=== PATIENT | female | born 1930 | race Caucasian/White ===

== ENCOUNTER 2019-07-02 14:34 | Inpatient (IN) | payer MEDICARE, OTHER ==
[2019-07-02] MEDS ORDERED: ONDANSETRON 4 MG/2 ML VIAL IVP PRN (17:20)
[2019-07-02] MEDS ORDERED: HYDROcodone/APAP 5-325MG 1 EACH TAB PO PRN (17:20)
[2019-07-02] MEDS: MORPHINE SULFATE 4 MG/ML SYRINGE IVP PRN ×2 (18:13→22:04)
[2019-07-02] MEDS: SODIUM CHLORIDE 0.9% 1,000 ML IV SCH (18:15)
[2019-07-02] MEDS ORDERED: MAGNESIUM HYDROXIDE 2,400 MG/10 ML CUP PO PRN (18:19)
[2019-07-02] MEDS ORDERED: BISACODYL 5 MG TABLET.DR PO PRN (18:19)
--- NOTE | 2019-07-02 19:57 | XR ---
EXAMINATION TYPE: XR Hip Complete LT DATE OF EXAM: 07/02/2019 COMPARISON: NONE HISTORY: Hip pain TECHNIQUE: 3 views FINDINGS: There is severely impacted displaced intertrochanteric fracture left femur with comminution. There is no dislocation. Impression Comminuted intertrochanteric displaced fracture left femur.
[2019-07-03] MEDS: LEVOTHYROXINE 75 MCG TAB PO SCH (06:07)
[2019-07-03] MEDS: MORPHINE SULFATE 4 MG/ML SYRINGE IVP PRN (08:14)
[2019-07-03] MEDS: METOPROLOL SUCCINATE (ER) 25 MG TAB.ER.24H PO SCH (08:15)
[2019-07-03] MEDS: amLODIPine 5 MG TAB PO SCH (08:15)
[2019-07-03] MEDS: FLUoxetine HCL 20 MG CAP PO SCH (08:15)
[2019-07-03] MEDS ORDERED: LISINOPRIL 20 MG TAB PO SCH (09:00)
--- NOTE | 2019-07-03 09:30 | P.CNOR ---
History of Present Illness - [facility] Consult date: 07/03/19 Consult reason: fracture History of present illness: Patient is an 88-year-old female who presented to [facility] yesterday afternoon after being transferred from [facility]. Patient lives at [facility], She had a fall while making her bed which resulted in a left intertrochanteric femur fracture. This was confirmed by x- rays at the initial hospital, she was transferred to our hospital for orthopedic care. She was admitted under internal medicine, I was contacted by the nursing staff last night regarding the patient. Patient was evaluated this morning at bedside, she is resting comfortably. She notes most discomfort in her left leg. She has no other orthopedic complaints. She's never had surgery with regards to left lower extremity. She does take Plavix, last confirmed dose was on 07/01/2019. I discussed with the patient that I would contact her daughter with regards to her current condition and treatment. Review of Systems Constitutional: Reports as per HPI Past Medical History Past Medical History: Heart Failure, COPD, GERD/Reflux, Hypertension, Osteoarthritis (OA), Skin Disorder, Thyroid Disorder History of Any Multi-Drug Resistant Organisms: None Reported Past Surgical History: No Surgical Hx Reported Past Anesthesia/Blood Transfusion Reactions: No Reported Reaction Past Psychological History: Anxiety, Depression Smoking Status: Former smoker Past Alcohol Use History: None Reported Past Drug Use History: None Reported - Past Family History Mother Family Medical History: No Reported History Medications and Allergies Home Medications Medication Instructions Recorded Confirmed Type Bisacodyl 10 mg PO Q48H PRN 07/02/19 07/02/19 History Clopidogrel Bisulfate [Plavix] 75 mg PO DAILY@0900 07/02/19 07/02/19 History FLUoxetine HCL [PROzac] 20 mg PO DAILY@0900 07/02/19 07/02/19 History HYDROcodone/APAP 5-325MG [[place] 1 tab PO Q6H PRN 07/02/19 07/02/19 History 5-325] HYDROcodone/APAP 5-325MG [[place] 1 tab PO TID@0900,1300,2100 07/02/19 07/02/19 History 5-325] House Supplement 120 ml PO DAILY@1400 07/02/19 07/02/19 History Levothyroxine Sodium [Synthroid] 75 mcg PO DAILY@0600 07/02/19 07/02/19 History Lisinopril [Zestril] 20 mg PO DAILY@0900 07/02/19 07/02/19 History Magnesium Hydroxide [Milk of 7,200 mg PO DAILY PRN 07/02/19 07/02/19 History Magnesia Concentrate] Metoprolol Succinate [Toprol XL] 25 mg PO DAILY@0900 07/02/19 07/02/19 History amLODIPine [Norvasc] 5 mg PO DAILY@0900 07/02/19 07/02/19 History clonazePAM [KlonoPIN] 0.5 mg PO BID@0900,2100 07/02/19 07/02/19 History Allergies Allergy/AdvReac Type Severity Reaction Status Date / Time No Known Allergies Allergy Verified 07/02/19 17:54 Physical Examination Left lower extremity: No significant ecchymosis or soft tissue swelling Obvious shortening and external rotation of the extremity when compared to the contralateral side There is an abrasion distal to the knee, this is covered with bandage No tenderness with palpation surrounding the knee, foot or ankle Logroll maneuver and straight leg raises unattainable Calf is soft, no tenderness with palpation Distal neurovascular exam is intact Results - Diagnostic results Hip x-ray: report reviewed, image reviewed (Displaced and comminuted left intertrochanteric femur fracture) Assessment and Plan Assessment: Displaced and comminuted left intertrochanteric femur fracture Status post fall from standing Other medical comorbidities Plan: I discussed the case with Dr. Celis my attending physician, plan is for surgical intervention on 07/03/2019. We will proceed with an intramedullary nail of left intertrochanteric femur fracture. I discussed the risk and benefits of the procedure with the patient at bedside and also the patient's daughter over the phone, they are in good understanding a nd would like to proceed. Obtain consent Pain control GI and DVT prophylaxis, will resume Plavix after surgery Physical therapy evaluation after surgery Medical recommendations Further recommendations to follow after surgery Time with Patient: Less than 30
[2019-07-03] MEDS ORDERED: KETOROLAC 30 MG/ML 1 ML VIAL IVP PRN (09:52)
[2019-07-03 10:27] VITALS: BMI 18.7
[2019-07-03] MEDS ORDERED: SODIUM CHLORIDE 0.9% 1,000 ML IV ONE (10:59)
[2019-07-03] MEDS ORDERED: ePHEDrine SULFATE/0.9% NACL/PF 50 MG/5 ML SYRINGE IV ONE (13:42)
[2019-07-03] MEDS ORDERED: SUCCINYLCHOLINE CHLORIDE 100 MG/5 ML SYR IV ONE (13:42)
[2019-07-03] MEDS ORDERED: PROPOFOL 10 MG/ML 20 ML VIAL IV ONE (13:42)
[2019-07-03] MEDS ORDERED: MIDAZOLAM 2 MG/2 ML VIAL ONE (13:42)
[2019-07-03] MEDS ORDERED: fentaNYL (PF) 50 MCG/ML 2 ML AMP ONE (13:42)
[2019-07-03] MEDS ORDERED: LIDOCAINE 1% INJ 10MG/ML (20 ML MDV) ONE (13:42)
[2019-07-03] MEDS ORDERED: LACTATED RINGERS 1,000 ML IV ONE (14:41)
[2019-07-03] MEDS ORDERED: HYDROmorphone 0.5 MG/0.5 ML SYRINGE IVP PRN (14:55)
[2019-07-03] MEDS ORDERED: NALOXONE 0.4 MG/ML 1 ML VIAL IV PRN (14:55)
[2019-07-03] MEDS ORDERED: ONDANSETRON 4 MG/2 ML VIAL IVP PRN (14:55)
--- NOTE | 2019-07-03 14:58 | FL ---
Fluoroscopy INDICATION: Pain FINDINGS: Fluoroscopy time: 46 seconds. Images obtained: 3. IMPRESSIONS: 1. Documentation of fluoroscopy.
--- NOTE | 2019-07-03 14:58 | XR ---
Fluoroscopy INDICATION: Pain FINDINGS: Fluoroscopy time: 0.6 seconds. Images obtained: 3. IMPRESSIONS: 1. Documentation of fluoroscopy.
--- NOTE | 2019-07-03 15:04 | P.OP ---
Date of Procedure: 07/03/19 Preoperative Diagnosis: Comminuted displaced left hip intertrochanteric fracture Postoperative Diagnosis: Comminuted displaced left hip intertrochanteric fracture Procedure(s) Performed: Trochanteric nailing left hip Implants: Synthes 10 mm/130 titanium cannulated trochanteric nail1 cm millimeters in length with a 100 mm fenestrated helical blade and a 34 mm distal locking screw Anesthesia: SOLIS Surgeon: Will Celis Windows Software Developer #1: Sid Ventura Estimated Blood Loss (ml): 50 Pathology: none sent Condition: stable Disposition: PACU Indications for Procedure: 88-year-old patient seen with a comminuted/displaced left hip intertrochanteric fracture. We recommended trochanteric nailing. The patient was agreeable and consent was obtained. Operative Findings: See description of procedure Description of Procedure: The patient was taken to the operative suite. The patient underwent a general anesthetic by the department of anesthesia. The patient was transferred to the fracture table. The left leg was placed in standard washer traction with slight internal rotation and adduction. The right lower stress place a well-padded well-leg centeno. C-arm brought in and confirmed adequate alignment of this comminuted fracture. C-arm was now pulled back. The patient did receive preoperative IV antibiotics. Left hip was now prepped and draped in the normal sterile fashion. I now brought the C-arm back into the operative field. A 6 cm incision was now made along the proximal trochanteric area. I now dissect down to the IT band. I incised the IT band. I now introduced a guidewire into the intramedullary canal. I then used our entry reamer. I then chose the appropriate trochanteric nail. That was introduced over the guidewire down into the intramedullary canal. It was tapped down appropriately appropriate position was noted. I now used the outrigger and made a separate incision followed by inserting a guidewire into the head neck complex. I confirmed adequate positioning under AP and lateral intraoperative imaging. I now reamed over the guidewire. I now introduced our fenestrated helical blade 100 mm. I now locked it into position. I now removed the cannula for that. I'll introduced cannula for a distal locking screw. An incision was made. That cannula was introduced until it hit the bone. I now drilled the holes for distal locking screw. I now placed a 34 mm 5.0 mm screw with good bite and purchase noted intraoperatively was removed. We noted adequate alignment of both the hardware and the fracture. The wounds were irrigated with saline solution. The IT band proximal was repaired #1 Vicryl. The subcu soft tissues were all repaired with 2-0 Vicryl. All incisions were repaired with skin joselito. Sterile dressings were applied. The patient was awakened. She was transferred to a bed and recovery stable condition. Sean JUAREZ assisted with this procedure.
--- NOTE | 2019-07-03 15:24 | P.HPIM ---
History of Present Illness H&P Date: 07/03/19 Chief Complaint: Left intertrochanteric femur fracture status post fall This is an 88-year-old female who was recently transferred from [facility] status post mechanical fall and underwent x-rays confirming left intertrochanteric femur fracture requiring surgical intervention. Orthopedic surgery is following. Patient is a resident at [facility] and reported a fall while making her bed yesterday. Patient does have a history of heart failure, COPD, gastroesophageal reflux disease, osteoarthritis, thyroid disorder, and history of anxiety and depression and home medications will be resumed. Will hold off on antihypertensives and assess for postoperative hypotension. Patient does have a history of taking Plavix with the last dose confirmed on 07/01/2019. Patient is scheduled to undergo orthopedic repair of this left intertrochanteric femur fracture today. Left hip x-ray reviewed showing severely impacted displaced intertrochanteric fracture of the left femur with comminution Review of Systems REVIEW OF SYSTEMS: CONSTITUTIONAL: No fever, no malaise, no fatigue. HEENT: No recent visual problems or hearing problems. Denies sore throat CARDIOVASCULAR: No chest pain, orthopnea, PND, no palpitations, no syncope. PULMONARY: no cough, no hemoptysis. GASTROINTESTINAL: No diarrhea, no nausea, no vomiting, no abdominal pain. NEUROLOGICAL: No headaches, no weakness, no numbness. HEMATOLOGICAL: Denies any bleeding or petechiae. GENITOURINARY: Denies any burning with micturition, dysuria, frequency, or urgency. MUSCULOSKELETAL/RHEUMATOLOGICAL: Reports left hip and leg pain ENDOCRINE: Denies any polyuria or polydipsia. SKIN: Denies rashes or lesions The rest of the 14-point review of systems is negative. Past Medical History Past Medical History: Heart Failure, COPD, GERD/Reflux, Hypertension, Osteoarthritis (OA), Skin Disorder, Thyroid Disorder History of Any Multi-Drug Resistant Organisms: None Reported Past Surgical History: No Surgical Hx Reported Past Anesthesia/Blood Transfusion Reactions: No Reported Reaction Past Psychological History: Anxiety, Depression Smoking Status: Former smoker Past Alcohol Use History: None Reported Past Drug Use History: None Reported - Past Family History Mother Family Medical History: No Reported History Medications and Allergies Home Medications Medication Instructions Recorded Confirmed Type Bisacodyl 10 mg PO Q48H PRN 07/02/19 07/02/19 History Clopidogrel Bisulfate [Plavix] 75 mg PO DAILY@0900 07/02/19 07/02/19 History FLUoxetine HCL [PROzac] 20 mg PO DAILY@0900 07/02/19 07/02/19 History HYDROcodone/APAP 5-325MG [[place] 1 tab PO Q6H PRN 07/02/19 07/02/19 History 5-325] HYDROcodone/APAP 5-325MG [[place] 1 tab PO TID@0900,1300,2100 07/02/19 07/02/19 History 5-325] House Supplement 120 ml PO DAILY@1400 07/02/19 07/02/19 History Levothyroxine Sodium [Synthroid] 75 mcg PO DAILY@0600 07/02/19 07/02/19 History Lisinopril [Zestril] 20 mg PO DAILY@0907/02/19 07/02/19 History Magnesium Hydroxide [Milk of 7,200 mg PO DAILY PRN 07/02/19 07/02/19 History Magnesia Concentrate] Metoprolol Succinate [Toprol XL] 25 mg PO DAILY@0900 07/02/19 07/02/19 History amLODIPine [Norvasc] 5 mg PO DAILY@0900 07/02/19 07/02/19 History clonazePAM [KlonoPIN] 0.5 mg PO BID@0900,2100 07/02/19 07/02/19 History Allergies Allergy/AdvReac Type Severity Reaction Status Date / Time No Known Allergies Allergy Verified 07/02/19 17:54 Physical Exam Vitals: Vital Signs Temp Pulse Resp BP Pulse Ox 07/03/19 11:00 97.6 F 68 16 170/64 96 07/03/19 04:50 98.1 F 56 L 16 146/74 93 L 07/02/19 23:00 99.5 F 57 L 16 160/75 97 07/02/19 16:40 97.8 F 63 17 153/69 95 Intake and Output 07/02/19 07/03/19 07/03/19 22:59 06:59 14:59 Intake Total 310 160 950 Output Total 100 450 Balance 310 60 500 Intake: IV 950 Intake, IV Titration 70 160 Amount Sodium Chloride 0.9% 1, 70 160 000 ml @ 20 mls/hr IV . Q24H [facility] Rx#:[id number] Oral 240 Output: Urine 100 400 Uretheral (Marie) 100 Estimated Blood Loss 50 Other: Voiding Method Indwelling Catheter Indwelling Catheter # Voids 1 Weight 49.442 kg 49.442 kg Gen: This is a 88-year-old female awake, alert and oriented 3, well-developed, well-nourished HEENT: Head is atraumatic, normocephalic. Pupils equal, round. Sclerae is anicteric. NECK: Supple. No JVD. No lymphadenopathy. No thyromegaly. LUNGS: Clear to auscultation. No wheezes or rhonchi. No intercostal retractions. HEART: Regular rate and rhythm. No murmur. ABDOMEN: Soft. Bowel sounds are present. No masses. No tenderness. EXTREMITIES: No pedal edema. No calf tenderness. Left hip and femur tenderness. NEUROLOGICAL: Patient is awake, alert and oriented x3. Cranial nerves 2 through 12 are grossly intact. Thrombosis Risk Factor Assmnt - Choose All That Apply Each Factor Represents 1 point: Abnormal pulmonary function (COPD), Medical pt on bed rest Each Risk Factor Represents 2 Points: Patient confined to bed Each Risk Factor Represents 3 Points: Age 75 years or older Other congenital or acquired thrombophilia - If yes, enter type in comment: No Each Risk Factor Represents 5 Points: Hip, pelvis, or leg fracture (< 1 month) Thrombosis Risk Factor Assessment Total Risk Factor Score: 12 Thrombosis Risk Factor Assessment Level: High Risk Assessment and Plan Assessment: -Status post fall, mechanical, left intertrochanteric femur fracture -History of COPD, not in any acute exacerbation -Hypertension: Will hold antihypertensive medication to assess and monitor for postoperative hypotension -History of thyroid disorder -History of heart failure -History of depression: Will continue with Prozac
[2019-07-03] MEDS: traMADol 50 MG TAB PO SCH ×2 (18:06→22:27)
[2019-07-03] MEDS: SODIUM CHLORIDE 0.9% 1,000 ML IV SCH (19:20)
[2019-07-03] MEDS: SENNOSIDES-DOCUSATE SODIUM 1 EACH TAB PO SCH (21:07)
[2019-07-03] MEDS: FAMOTIDINE 20 MG TAB PO SCH (21:07)
[2019-07-04] MEDS: LEVOTHYROXINE 75 MCG TAB PO SCH (05:27)
[2019-07-04 06:51] LABS: HCT 22.8 % (34.0-46.0); HGB 7.2 gm/dL (11.4-16.0); MCHC 31.4 g/dL (31.0-37.0); MCV 95.7 fL (80.0-100.0); Mean Platelet Volume 7.5; Platelet Count 210 k/uL (150-450); RBC 2.39 m/uL (3.80-5.40); RDW 13.3 % (11.5-15.5); WBC 9.3 k/uL (3.8-10.6)
[2019-07-04 07:00] LABS: Calcium 8.4 mg/dL (8.4-10.2); Potassium 4.2 mmol/L (3.5-5.1)
[2019-07-04] MEDS: METOPROLOL SUCCINATE (ER) 25 MG TAB.ER.24H PO SCH (08:13)
[2019-07-04] MEDS: FLUoxetine HCL 20 MG CAP PO SCH (08:13)
[2019-07-04] MEDS: CLOPIDOGREL 75 MG TAB PO SCH (08:13)
[2019-07-04] MEDS: traMADol 50 MG TAB PO SCH ×4 (08:13→21:05)
[2019-07-04] MEDS: amLODIPine 5 MG TAB PO SCH (08:14)
[2019-07-04] MEDS: FAMOTIDINE 20 MG TAB PO SCH (08:14)
--- NOTE | 2019-07-04 10:43 | P.PN ---
Subjective Progress Note Date: 07/04/19 Principal diagnosis: status post IM nail left intertrochanteric femur fracture Patient was examined today visit, she is resting comfortably in her hospital chair. She notes the pain is controlled at this time. She denies any chest pain, shortness of breath, fever or chills Objective - Vital Signs Vital signs: Vital Signs Temp 97.9 F 07/04/19 05:00 Pulse 75 07/04/19 08:30 Resp 18 07/04/19 08:30 BP 136/77 07/04/19 05:00 Pulse Ox 98 07/04/19 05:00 Intake & Output 07/03/19 07/04/19 07/04/19 18:59 06:59 18:59 Intake Total 1000 440 Output Total 550 325 Balance 450 115 Weight 49.442 kg Intake: IV 1000 Intake, IV Titration 240 Amount Sodium Chloride 0.9% 1, 240 000 ml @ 20 mls/hr IV . Q24H [facility] Rx#:[id number] Oral 200 Output: Urine 500 325 Estimated Blood Loss 50 Other: Voiding Method Indwelling Catheter Indwelling Catheter Indwelling Catheter - Exam Left lower extremity: Postoperative bandages are in good position and condition. No active drainage visualized. Minimal soft tissue swelling present in the leg. Calf is soft, no tenderness with palpation. Plantar flexion, dorsiflexion, EHL, FHL are intact. Sensory exam light touch is intact throughout the extremity. - Labs CBC & Chem 7: 07/04/19 05:34 07/04/19 05:34 Labs: Abnormal Lab Results - Last 24 Hours (Table) 07/04/19 07/04/19 Range/Units 05:34 05:34 RBC 2.39 L (3.80-5.40) m/uL Hgb 7.2 L (11.4-16.0) gm/dL Hct 22.8 L (34.0-46.0) % Sodium 132 L (137-145) mmol/L BUN 22 H (7-17) mg/dL Assessment and Plan Assessment: Status post IM nail left intertrochanteric femur fracture Acute blood loss anemia, expected surgical outcome Plan: Pain control, continue current medication Toe-touch weight-bearing with walker PT evaluation Will change dressing tomorrow I did order one unit of packed RBCs along with type and screen GI and DVT prophylaxis, patient has resumed Plavix Other medical recommendations We'll continue to follow during inpatient stay Time with Patient: Less than 30
--- NOTE | 2019-07-04 15:14 | P.PN ---
Subjective Progress Note Date: 07/04/19 Principal diagnosis: This is an 88-year-old female who was recently transferred from [facility] status post mechanical fall and underwent x-rays confirming left intertrochanteric femur fracture requiring surgical intervention. Orthopedic surgery is following. Patient is a resident at [facility] and reported a fall while making her bed yesterday. Patient does have a history of heart failure, COPD, gastroesophageal reflux disease, osteoarthritis, thyroid disorder, and history of anxiety and depression and home medications will be resumed. Will hold off on antihypertensives and assess for postoperative hypotension. Patient does have a history of taking Plavix with the last dose confirmed on 07/01/2019. Patient is scheduled to undergo orthopedic repair of this left intertrochanteric femur fracture today. Left hip x-ray reviewed showing severely impacted displaced intertrochanteric fracture of the left femur with comminution 07/04/2019 Patient is seen and evaluated status post left intertrochanteric IM nail placement with orthopedic surgery and is postop day #1. Patient states she is having some discomfort of the left hip and will be working with physical therapy sometime today. Patient states that her pain is being managed. Plavix has been resumed. Surgical dressings of the left hip noted to be dry and intact. Hemoglobin this morning is 7.2 and a unit of PRBCs were ordered. Currently has no reports of chest pain, shortness of breath, or palpitations. Patient is afebrile. No reports of nausea or vomiting and patient is tolerating diet. She denies any bowel movements at this time but is passing some gas. Vital signs within normal limits and will monitor blood pressure closely his current antihypertensive medications are being held. Norvasc was reinitiated. Will repeat a.m. labs. Objective - Vital Signs Vital signs: Vital Signs Temp 97.9 F 07/04/19 05:00 Pulse 75 07/04/19 08:30 Resp 18 07/04/19 08:30 BP 136/77 07/04/19 05:00 Pulse Ox 98 07/04/19 05:00 Intake & Output 07/03/19 07/04/19 07/04/19 18:59 06:59 18:59 Intake Total 1000 440 Output Total 550 325 Balance 450 115 Weight 49.442 kg Intake: IV 1000 Intake, IV Titration 240 Amount Sodium Chloride 0.9% 1, 240 000 ml @ 20 mls/hr IV . Q24H [facility] Rx#:[id number] Oral 200 Output: Urine 500 325 Estimated Blood Loss 50 Other: Voiding Method Indwelling Catheter Indwelling Catheter Indwelling Catheter - Exam Gen: This is a 88-year-old female awake, alert and oriented 3, well-developed, well-nourished HEENT: Head is atraumatic, normocephalic. Pupils equal, round. Sclerae is anicteric. NECK: Supple. No JVD. No lymphadenopathy. No thyromegaly. LUNGS: Clear to auscultation. No wheezes or rhonchi. No intercostal retractions. HEART: Regular rate and rhythm. No murmur. ABDOMEN: Soft. Bowel sounds are present. No masses. No tenderness. EXTREMITIES: No pedal edema. No calf tenderness. Status post left IM nail placement for intertrochanteric femur fracture with surgical dressings noted that are dry and intact. NEUROLOGICAL: Patient is awake, alert and oriented x3. Cranial nerves 2 through 12 are grossly intact. - Labs CBC & Chem 7: 07/04/19 05:34 07/04/19 05:34 Labs: Abnormal Lab Results - Last 24 Hours (Table) 07/04/19 07/04/19 Range/Units 05:34 05:34 RBC 2.39 L (3.80-5.40) m/uL Hgb 7.2 L (11.4-16.0) gm/dL Hct 22.8 L (34.0-46.0) % Sodium 132 L (137-145) mmol/L BUN 22 H (7-17) mg/dL Assessment and Plan Assessment: -Status post fall, mechanical, left intertrochanteric femur fracture -Status post IT nail placement for left intertrochanteric femur fracture -Acute blood loss anemia, secondary to surgery, and expected outcome of surgery. Patient to receive 1 unit of PRBCs. Hemoglobin is 7.2 currently and will repeat a.m. labs. -History of COPD, not in any acute exacerbation -Hypertension: Norvasc resumed, holding lisinopril at this time. -History of thyroid disorder -History of heart failure -History of depression: Will continue with Prozac Plan: Continue current medications, management, and symptomatic treatment. Patient's hemoglobin was found to be 7.2 this morning and is receiving a unit of PRBCs. Will repeat a.m. labs. Norvasc reinitiated. PT/OT following along with orthopedic surgery. Will continue to monitor patient closely. Further rec ommendations to follow based on clinical course. Patient is a resident at [facility] and will likely be returning there once stabilized and discharged.
[2019-07-04] MEDS: SODIUM CHLORIDE 0.9% 1,000 ML IV SCH (20:24)
[2019-07-04] MEDS: SENNOSIDES-DOCUSATE SODIUM 1 EACH TAB PO SCH (21:05)
[2019-07-05 05:30] VITALS: TEMP 97.6
[2019-07-05] MEDS: LEVOTHYROXINE 75 MCG TAB PO SCH (06:07)
[2019-07-05] MEDS: traMADol 50 MG TAB PO SCH ×2 (08:03→14:46)
[2019-07-05] MEDS: amLODIPine 5 MG TAB PO SCH (08:03)
[2019-07-05] MEDS: FLUoxetine HCL 20 MG CAP PO SCH (08:03)
[2019-07-05] MEDS: METOPROLOL SUCCINATE (ER) 25 MG TAB.ER.24H PO SCH (08:05)
[2019-07-05] MEDS: CLOPIDOGREL 75 MG TAB PO SCH (08:05)
[2019-07-05] MEDS ORDERED: FAMOTIDINE 20 MG TAB PO SCH (09:00)
[2019-07-05] MEDS ORDERED: LISINOPRIL 20 MG TAB PO SCH (09:30)
[2019-07-05 09:49] LABS: Basophils % (A) 0 %; Eosinophils # (A) 0.1 k/uL (0-0.7); Eosinophils % (A) 1 %; HCT 27.8 % (34.0-46.0); Lymphocytes % (A) 11 %; MCH 30.5 pg (25.0-35.0); MCHC 33.1 g/dL (31.0-37.0); MCV 92.4 fL (80.0-100.0); Mean Platelet Volume 7.7; Monocytes # (A) 0.5 k/uL (0-1.0); Monocytes % (A) 6 %; Neutrophils # (A) 7.7 k/uL (1.3-7.7); Neutrophils % (A) 81 %; Platelet Count 255 k/uL (150-450); RBC 3.01 m/uL (3.80-5.40); RDW 13.6 % (11.5-15.5); WBC 9.5 k/uL (3.8-10.6)
[2019-07-05 09:51] LABS: HGB 9.2 gm/dL (11.4-16.0)
--- NOTE | 2019-07-05 11:16 | P.PN ---
Subjective Progress Note Date: 07/05/19 Principal diagnosis: status post IM nail left intertrochanteric femur fracture Patient was examined today visit, she is resting comfortably in her hospital chair. She notes the pain is controlled at this time. She denies any chest pain, shortness of breath, fever or chills Objective - Vital Signs Vital signs: Vital Signs Temp 97.6 F 07/05/19 05:00 Pulse 73 07/05/19 09:49 Resp 17 07/05/19 09:49 BP 169/74 07/05/19 09:49 Pulse Ox 95 07/05/19 05:00 Intake & Output 07/04/19 07/05/19 07/05/19 18:59 06:59 18:59 Intake Total 470 640 Output Total 800 500 600 Balance -330 140 -600 Weight 44 kg Intake: Oral 160 640 Blood Product 310 Rc As-1 Unit 310 [id number] Output: Urine 800 500 600 Uretheral (Marie) 500 Other: Voiding Method Indwelling Catheter Indwelling Catheter Indwelling Catheter # Voids 1 2 - Exam Left lower extremity: incision is clean, dry and intact, joselito are in good position and condition. Minimal soft tissue swelling present in the leg. Calf is soft, no tenderness with palpation. Plantar flexion, dorsiflexion, EHL, FHL are intact. Sensory exam light touch is intact throughout the extremity. - Labs CBC & Chem 7: 07/05/19 09:30 07/04/19 05:34 Labs: Abnormal Lab Results - Last 24 Hours (Table) 07/04/19 07/05/19 Range/Units 10:16 09:30 RBC 3.01 L (3.80-5.40) m/uL Hgb 9.2 L D (11.4-16.0) gm/dL Hct 27.8 L (34.0-46.0) % Crossmatch See Detail Assessment and Plan Assessment: Status post IM nail left intertrochanteric femur fracture Acute blood loss anemia, expected surgical outcome Plan: Pain control, continue current medication Toe-touch weight-bearing with walker PT evaluation Hemoglobin is improved since transfusion, plan for discharge on oral iron GI and DVT prophylaxis, patient has resumed Plavix Other medical recommendations Plan for discharge to automotive today Time with Patient: Less than 30
--- NOTE | 2019-07-05 11:25 | P.DS ---
Providers Date of admission: 07/02/19 16:38 Expected date of discharge: 07/05/19 Attending physician: Shae Giles MD Consults: 07/02/19 17:18 Consult Physician Routine Consulting Provider: Will Celis Consult Reason/Comments: left hip fracture Do you want consulting provider notified?: Yes Placement Type Exists?: Yes Primary care physician: Stated None Hospital Course: Date of admission: 07/02/2019 Date of discharge: 07/05/2019 Admission diagnosis: Displaced and comminuted left intertrochanteric femur fracture Discharge diagnosis: Status post intramedullary nail left intertrochanteric femur fracture Attending physician: Dr. Celis Surgical procedures: Intramedullary nail left intertrochanteric femur fracture Brief history: Patient is a 88-year-old female who was a direct admit to [facility] in hospital from [facility]. She had a fall at her residence which resulted in a displaced and comminuted left intertrochanteric femur fracture. She was transferred to this hospital for orthopedic care, she was initially admitted under internal medicine with our team on consult. Patient was scheduled for surgery on 07/03/2019. Hospital course: Details of patient's surgery can be found in operative report. Patient tolerated the procedure well and was subsequently transported to orthopedic floor. Patient's orthopeidc and medical care was provided daily. Patient had daily laboratory tests performed for evaluation of overall blood counts. Patient had daily physical therapy to include strengthening range of motion as well as education with walker ambulation. Patient was treated with Plavix for their postoperative DVT prophylaxis during their inpatient stay. Patient was noted to have a relatively uneventful postoperative course. Patient reported satisfactory pain control with oral pain medications by postoperative day 0. Patient showed satisfactory progress with physical therapy. Patient moved steadily through the program and had no difficulty meeting the goals by postoperative day 2. Given patient's otherwise satisfactory course and having met physical therapy goals, plan is to discharge patient rehab on postoperative day 2. Discharge condition/disposition: Patient will be discharged to rehab in stable condition. Discharge medications: Instructions are given on resumption of patient's normal daily medications per primary care recommendation, in addition patient will be prescribed Benld 5 mg/325 mg, ferrous sulfate 325 mg., Colace 100 mg Discharge instructions: 1. Wound care and infection precautions, keep incision dry and covered while showering, no lotions, creams, moisturizers. No soaking, tubs, pools, hottubs. Do not scrub over the incision. 2. Toe-touch weightbearing with walker 3. Ice and elevate when necessary. Do not exceed 20 minutes per hour with ice pack. 10. Follow up in office at 2 weeks postop with Sean Ventura PA-C 11. Follow up with your primary care doctor 7-10 days after discharge. 12. Contact [facility] with any questions, . Procedures: Intramedullary nail left intertrochanteric femur fracture Patient Condition at Discharge: Fair Plan - Discharge Summary Discharge Rx Participant: No New Discharge Prescriptions: New Docusate [Colace] 100 mg PO DAILY #30 capsule Ferrous Sulfate [Feosol] 325 mg PO BID #60 tab Hydrocodone/Acetaminophen [Benld 5-325] 1 each PO Q8HR PRN #40 tab PRN Reason: Pain No Action House Supplement 120 ml PO DAILY@1400 amLODIPine [Norvasc] 5 mg PO DAILY@0900 Bisacodyl 10 mg PO Q48H PRN PRN Reason: Constipation clonazePAM [KlonoPIN] 0.5 mg PO BID@0900,2100 Clopidogrel Bisulfate [Plavix] 75 mg PO DAILY@0900 FLUoxetine HCL [PROzac] 20 mg PO DAILY@0900 HYDROcodone/APAP 5-325MG [Benld 5-325] 1 tab PO Q6H PRN PRN Reason: Pain HYDROcodone/APAP 5-325MG [Benld 5-325] 1 tab PO TID@0900,1300,2100 Levothyroxine Sodium [Synthroid] 75 mcg PO DAILY@0600 Lisinopril [Zestril] 20 mg PO DAILY@0900 Magnesium Hydroxide [Milk of Magnesia Concentrate] 7,200 mg PO DAILY PRN PRN Reason: Constipation Metoprolol Succinate [Toprol XL] 25 mg PO DAILY@0900 Discharge Medication List Bisacodyl 10 mg PO Q48H PRN 07/02/19 [History] Clopidogrel Bisulfate [Plavix] 75 mg PO DAILY@0900 07/02/19 [History] FLUoxetine HCL [PROzac] 20 mg PO DAILY@0900 07/02/19 [History] House Supplement 120 ml PO DAILY@1400 07/02/19 [History] Levothyroxine Sodium [Synthroid] 75 mcg PO DAILY@0600 07/02/19 [History] Lisinopril [Zestril] 20 mg PO DAILY@0900 07/02/19 [History] Magnesium Hydroxide [Milk of Magnesia Concentrate] 7,200 mg PO DAILY PRN 07/02/19 [History] Metoprolol Succinate [Toprol XL] 25 mg PO DAILY@0900 07/02/19 [History] amLODIPine [Norvasc] 5 mg PO DAILY@0900 07/02/19 [History] clonazePAM [KlonoPIN] 0.5 mg PO BID@0900,2100 07/02/19 [History] Docusate [Colace] 100 mg PO DAILY #30 capsule 07/05/19 [Rx] Ferrous Sulfate [Feosol] 325 mg PO BID #60 tab 07/05/19 [Rx] Hydrocodone/Acetaminophen [Benld 5-325] 1 each PO Q8HR PRN #40 tab 07/05/19 [Rx] Follow up Appointment(s)/Referral(s): Sid Ventura PAC [PHYSICIAN APPLICATION INTEGRATION ENGINEER] - 2 Weeks Activity/Diet/Wound Care/Special Instructions: Orthopedic discharge instructions: 1. Date of surgery was 07/03/2019, okay to remove joselito after 2 weeks, if office visit is scheduled around that time I will take them a myself 2. Keep incisions covered and dry while showering 3. Toe-touch weightbearing with walker at all times 4. Patient has a small skin tear on the left calf, please address with oral immersion dressing, okay to change every 3 days 5. Ferrous sulfate 325 mg twice a day for 2-4 weeks due to acute blood loss anemia 6. Plan for [facility]up at [facility] 2 weeks Discharge Disposition: TRANSFER TO SNF/ECF
[2019-07-05 11:51] VITALS: BP 137/70; PULSE 67; RESP 16
--- NOTE | 2019-07-05 12:11 | P.DS ---
Providers Date of admission: 07/02/19 16:38 Expected date of discharge: 07/05/19 Attending physician: Shae Giles MD Consults: 07/02/19 17:18 Consult Physician Routine Consulting Provider: Will Celis Consult Reason/Comments: left hip fracture Do you want consulting provider notified?: Yes Placement Type Exists?: Yes Primary care physician: Stated None Hospital Course: Final diagnosis -Status post fall, mechanical, left intertrochanteric femur fracture -Status post IT nail placement for left intertrochanteric femur fracture -Acute blood loss anemia, secondary to surgery, and expected outcome of surgery, and proved -History of COPD, not in any acute exacerbation -Hypertension -History of thyroid disorder -History of heart failure -History of depression Discharge disposition Patient is being discharged in a stable condition with guarded prognosis back to [facility] as she is a resident there. Patient will follow-up with orthopedic surgery in the next 2 weeks. Total time taken is 35 minutes. History of present illness This is an 88-year-old female who was recently transferred from [facility] status post mechanical fall and underwent x-rays confirming left intertrochanteric femur fracture requiring surgical intervention. Orthopedic surgery is following. Patient is a resident at [facility] and reported a fall while making her bed yesterday. Patient does have a history of heart failure, COPD, gastroesophageal reflux disease, osteoarthritis, thyroid disorder, and history of anxiety and depression and home medications will be resumed. Will hold off on antihypertensives and assess for postoperative hypotension. Patient does have a history of taking Plavix with the last dose confirmed on 07/01/2019. Patient is scheduled to undergo orthopedic repair of this left intertrochanteric femur fracture today. Left hip x-ray reviewed showing severely impacted displaced intertrochanteric fracture of the left femur with comminution 07/05/2019 Patient is sitting up in the chair and appears to be in no acute distress. Patient will be going back to [facility] today she has been cleared by orthopedic surgery and will follow-up with them in the outpatient setting in 2 weeks. Patient's repeat hemoglobin today after 1 unit of PRBCs is 9.2. Patient is hemodynamically stable. Patient will be going on an iron supplement upon discharge. Patient will also resume regular antihypertension medications that she was previously taking. Currently no reports of chest pain, shortness of breath, or palpitations. Patient is afebrile. No reports of nausea or vomiting and patient is tolerating diet. Patient to continue with physical therapy and adhere to orthopedic discharge instructions as noted in the discharge plan. Patient will be going to [facility] today. On exam vital signs are stable. Temp is 97.6F, pulse is 67, respirations are 16, blood pressure is 137/70, oxygen saturation is 98% on room air. Cardio S1, S2 are present. Respiratory system shows clear to auscultation. Abdomen is soft, thin, nontender. Nervous system shows no focal deficits. Please refer to medication reconciliation sheet for a list of medications. Patient Condition at Discharge: Stable Plan - Discharge Summary Discharge Rx Participant: No New Discharge Prescriptions: New Docusate [Colace] 100 mg PO DAILY #30 capsule Ferrous Sulfate [Feosol] 325 mg PO BID #60 tab Hydrocodone/Acetaminophen [[place] 5-325] 1 each PO Q8HR PRN #40 tab PRN Reason: Pain Continue House Supplement 120 ml PO DAILY@1400 amLODIPine [Norvasc] 5 mg PO DAILY@0900 Bisacodyl 10 mg PO Q48H PRN PRN Reason: Constipation Clopidogrel Bisulfate [Plavix] 75 mg PO DAILY@0900 FLUoxetine HCL [PROzac] 20 mg PO DAILY@0900 Levothyroxine Sodium [Synthroid] 75 mcg PO DAILY@0600 Lisinopril [Zestril] 20 mg PO DAILY@0900 Magnesium Hydroxide [Milk of Magnesia Concentrate] 7,200 mg PO DAILY PRN PRN Reason: Constipation Metoprolol Succinate [Toprol XL] 25 mg PO DAILY@0900 clonazePAM [KlonoPIN] 0.5 mg PO BID@0900,2100 #4 tab Discharge Medication List Bisacodyl 10 mg PO Q48H PRN 07/02/19 [History] Clopidogrel Bisulfate [Plavix] 75 mg PO DAILY@0900 07/02/19 [History] FLUoxetine HCL [PROzac] 20 mg PO DAILY@0900 07/02/19 [History] House Supplement 120 ml PO DAILY@1400 07/02/19 [History] Levothyroxine Sodium [Synthroid] 75 mcg PO DAILY@0600 07/02/19 [History] Lisinopril [Zestril] 20 mg PO DAILY@0900 07/02/19 [History] Magnesium Hydroxide [Milk of Magnesia Concentrate] 7,200 mg PO DAILY PRN 07/02/19 [History] Metoprolol Succinate [Toprol XL] 25 mg PO DAILY@0900 07/02/19 [History] amLODIPine [Norvasc] 5 mg PO DAILY@0900 07/02/19 [History] Docusate [Colace] 100 mg PO DAILY #30 capsule 07/05/19 [Rx] Ferrous Sulfate [Feosol] 325 mg PO BID #60 tab 07/05/19 [Rx] Hydrocodone/Acetaminophen [[place] 5-325] 1 each PO Q8HR PRN #40 tab 07/05/19 [Rx] clonazePAM [KlonoPIN] 0.5 mg PO BID@0900,2100 #4 tab 07/05/19 [Rx] Follow up Appointment(s)/Referral(s): Diana Menon, [NON-STAFF] - 1-2 Days Sid Ventura PAC [PHYSICIAN TAKER OFF BRAKER MACHINE] - 07/19/19 1:30 pm Activity/Diet/Wound Care/Special Instructions: Patient is returning to [facility] Activity as tolerated and follow orthopedic instructions Continue current diet Orthopedic discharge instructions: 1. Date of surgery was 07/03/2019, okay to remove joselito after 2 weeks, if office visit is scheduled around that time I will take them a myself 2. Keep incisions covered and dry while showering 3. Toe-touch weightbearing with walker at all times 4. Patient has a small skin tear on the left calf, please address with oral immersion dressing, okay to change every 3 days 5. Ferrous sulfate 325 mg twice a day for 2-4 weeks due to acute blood loss anemia 6. Plan for [facility]up at [facility] 2 weeks Discharge Disposition: TRANSFER TO SNF/ECF
== END 2019-07-05 14:50 | DRG 481 ==
LOC: 5NMEDONC 16:38
PROVIDERS: ADMIT Internal Medicine; ATTEND Internal Medicine
PROC: 0QH706Z Insertion of Intramedullary Internal Fixation Device into Left Upper Femur, Open Approach (ICD-10-PCS; principal; 2019-07-03 08:35)
PROC: 30233N1 Transfusion of Nonautologous Red Blood Cells into Peripheral Vein, Percutaneous Approach (ICD-10-PCS; 2019-07-04)
DX: S72.142A Displaced intertrochanteric fracture of left femur, initial encounter for closed fracture (principal); D62 Acute posthemorrhagic anemia; F32.9 Major depressive disorder, single episode, unspecified; F41.9 Anxiety disorder, unspecified; K21.9 Gastro-esophageal reflux disease without esophagitis; W19.XXXA Unspecified fall, initial encounter; I11.0 Hypertensive heart disease with heart failure; I50.9 Heart failure, unspecified; J44.9 Chronic obstructive pulmonary disease, unspecified; Z79.02 Long term (current) use of antithrombotics/antiplatelets; Z79.890 Hormone replacement therapy; Z79.899 Other long term (current) drug therapy; Z87.891 Personal history of nicotine dependence; Y92.009 Unspecified place in unspecified non-institutional (private) residence as the place of occurrence of the external cause
CPT/HCPCS: 73501; 73502; 80048; 85025; 85027; 86850; 86900; 86901; 86920; 93005